=== PATIENT | male | born 1960 | race Caucasian/White ===

== ENCOUNTER 2024-01-10 14:30 | Emergency (ER) | payer OTHER ==
[2024-01-10] MEDS: Lidocaine 1% PF 2 ML SDV INJECT ONE (14:54)
[2024-01-10] MEDS: Diphtheria,Pertussis(Acell),Tetanus Vaccine 0.5 ML Syringe IM ONE (15:08)
== END 2024-01-10 15:29 | disposition home or self-care (01) ==
LOC: MW.ED 14:30
DX: S61.012A Laceration without foreign body of left thumb without damage to nail, initial encounter (principal); I10 Essential (primary) hypertension; E78.00 Pure hypercholesterolemia, unspecified; Z23 Encounter for immunization; Z75.8 Other problems related to medical facilities and other health care; W27.5XXA Contact with paper-cutter, initial encounter
CPT/HCPCS: 12001; 90471; 90715; 99282-25; J3490

== ENCOUNTER 2024-01-19 11:06 | Emergency (ER) | payer OTHER | END 2024-01-19 11:21 | disposition home or self-care (01) | LOC: MW.ED 11:06 | DX: S61.412D Laceration without foreign body of left hand, subsequent encounter (principal); Z48.02 Encounter for removal of sutures | CPT/HCPCS: 99281 ==